=== PATIENT | female | born 2000 | race Two or more races ===

== ENCOUNTER 2019-07-10 10:20 | Day surgery (SDC) | payer MEDICAID ==
[2019-07-08 12:42] LABS: BASOPHILS % (AUTO) 0.6 % (0.0-2.0); HEMATOCRIT 42.4 % (37.0-47.0); HEMOGLOBIN 14.4 G/DL (12.0-16.0); LYMPHOCYTES % (AUTO) 37.8 % (20.0-45.0); MEAN CORPUSCULAR VOLUME 91 FL (80-99); MONOCYTES % (AUTO) 10.5 % (1.0-10.0); NEUTROPHILS % (AUTO) 47.2 % (45.0-75.0); PLATELET COUNT 256 K/UL (150-450); RED BLOOD COUNT 4.63 M/UL (4.20-5.40); RED CELL DISTRIBUTION WIDTH 11.1 % (11.6-14.8); WHITE BLOOD COUNT 6.3 K/UL (4.8-10.8)
[2019-07-08 12:57] LABS: APPEARANCE,URINE CLEAR; BILIRUBIN, URINE NEGATIVE (NEGATIVE); COLOR,URINE PALE YELLOW; GLUCOSE, URINE (UA) NEGATIVE (NEGATIVE); KETONES,URINE NEGATIVE (NEGATIVE); LEUKOCYTE ESTERASE ,URINE NEGATIVE (NEGATIVE); NITRITE,URINE NEGATIVE (NEGATIVE); PH,URINE 6 (4.5-8.0); PROTEIN,URINE NEGATIVE (NEGATIVE); UROBILINOGEN,URINE NORMAL MG/DL (0.0-1.0)
--- NOTE | 2019-07-09 15:00 | Pre-op HX & Phy Repo 2 SIG ---
DATE OF ADMISSION: 07/10/2019 SCHEDULED FOR OUTPATIENT SURGERY: 07/10/2019. HISTORY OF PRESENT ILLNESS: The patient is a 18-year-old female in overall good health who presents with a 3-month history of a left breast mass with associated discomfort. She has no prior history of breast disease. She has a cousin, who had breast cancer. MEDICATIONS: None. ALLERGIES: None. OPERATIONS: None. REVIEW OF SYSTEMS: She is nulliparous. She has regular menstrual periods. PHYSICAL EXAMINATION: GENERAL: The patient is 5 feet 118 pounds. VITAL SIGNS: Within normal limits. HEENT: Within normal limits. LUNGS: Clear. HEART: Regular rhythm. BREASTS: Moderately large and ptotic. The right breast is unremarkable. Left breast at 8 o'clock adjacent to the areolar border is a 3 cm mobile mass. There is no axillary, supraclavicular lymphadenopathy. ABDOMEN: Soft. PELVIC: Per primary care. RECTAL: Per primary care. EXTREMITIES: Without edema. NEUROLOGIC: Physiologic. ADDITIONAL INFORMATION: Ultrasound of the left breast revealed a 2.7 x 1.8 cm nodule at 8 to 9 o'clock, probably a fibroadenoma, possible phyllodes tumor. IMPRESSION: Symptomatic left breast mass, probable fibroadenoma versus phyllodes tumor. PLAN: In view of the symptomatic nature of the mass, there is no benefit to core biopsy as it is very unlikely to be malignant. The plan is for excision of the left breast mass and general anesthesia as an outpatient with a circumareolar incision. I have discussed the nature of the surgery with the patient and her mother indications, alternatives, options, and risks including bleeding, infection, recurrence, need for additional surgery or treatments based on final pathology, scarring or distortion of the breast and nipple etc. All questions have been answered. She understands and agrees to proceed as an outpatient under general anesthesia. Dwayne Song M.D. DR: ISAMAR JOB#: [id number] CC:
[2019-07-10] VITALS (7 sets, daily range): BP systolic 92–114; BP diastolic 50–65
[~2019-07-10] VITALS: Ht 152.4 cm; Wt 53.5 kg
[2019-07-10] MEDS ORDERED: NKM (11:10)
[2019-07-10] MEDS ORDERED: LR 1000ml 1,000 ML IVLG SCH (11:37)
--- NOTE | 2019-07-10 11:39 | Anethesia Preoperative Eval ---
Anesthesia Pre-op PMH/ROS General Date of Evaluation: Jul 10, 2019 Time of Evaluation: 13:24 Anesthesiologist: Tyler ASA Score: ASA 1 Mallampati Score Class I : Soft palate, uvula, fauces, pillars visible Class II: Soft palate, uvula, fauces visible Class III: Soft palate, base of uvula visible Class IV: Only hard plate visible Mallampati Classification: Class I Surgeon: Nohemi Diagnosis: L Breast Pain Surgical Procedure: L Breast Mass Excision Anesthesia History: none Family History: no anesthesia problems Allergies: Coded Allergies: No Known Allergies (Unverified , 07/09/19) Medications: see eMAR Patient NPO?: Yes Anesthesia Pre-op Phys. Exam Physician Exam Last Vital Signs Date Time Temp Pulse Resp B/P (MAP) Pulse Ox O2 Delivery O2 Flow Rate FiO2 07/10/19 11:05 Room Air 07/10/19 10:50 97.4 63 18 109/64 100 Constitutional: NAD Neurologic: CN 2-12 intact Cardiovascular: RRR Respiratory: CTA Gastrointestinal: S/NT/ND Airway Exam Mallampati Score: Class I MO: full ROM: full Teeth: intact Anesthesia Pre-op A/P Risk Assessment & Plan Assessment: ASA 1 Plan: GA, SED Status Change Before Surgery: No Pre-Antibiotics Dru Gram Ancef IV Given Within 1 Hr of Incision: Yes Time Given: 13:36 Sebastien Scott MD Jul 10, 2019 11:39
--- NOTE | 2019-07-10 11:42 | Immediate Post-Op Evaluation ---
Immediate Post-Op Evalulation Immediate Post-Op Evalulation Procedure: L Breast Mass Excision Date of Evaluation: Jul 10, 2019 Time of Evaluation: 14:35 IV Fluids: 500 LR Blood Products: 0 Estimated Blood Loss: 10 Urinary Output: 0 Blood Pressure Systolic: 102 Blood Pressure Diastolic: 56 Pulse Rate: 56 Respiratory Rate: 16 O2 Sat by Pulse Oximetry: 100 Temperature (Fahrenheit): 97.8 Pain Score (1-10): 3 Nausea: No Vomiting: No Complications 0 Patient Status: awake, reacts, patent, none Hydration Status: adequate Dru Gram Ancef IV Given Within 1 Hr of Incision: Yes Time Given: 13:36 Sebastien Scott MD Jul 10, 2019 11:42
[2019-07-10] MEDS ORDERED: fentaNYL 100 mcg/2 mL IV PRN (11:45)
[2019-07-10] MEDS ORDERED: Hydromorphone 0.5mg/0.5ml inj IVP PRN (11:45)
[2019-07-10] MEDS ORDERED: DiphenhydrAMINE 50mg/ml Inj IVP PRN (11:45)
[2019-07-10] MEDS ORDERED: Metoclopramide 10mg/2ml Inj IVP PRN (11:45)
[2019-07-10] MEDS ORDERED: Midazolam 2mg/2ml Inj IVP PRN (11:45)
[2019-07-10] MEDS ORDERED: Ketorolac 30mg Inj IV PRN ×2 (11:45)
[2019-07-10] MEDS ORDERED: Acetaminophen (Non formulary) 100 ML IV ONE (11:45)
[2019-07-10] MEDS ORDERED: oxyCODONE HCL/Acetaminophen 5/325mg ORAL PRN (11:45)
[2019-07-10] MEDS ORDERED: Labetalol 5mg/ml 20ml vial IV PRN (11:45)
[2019-07-10] MEDS ORDERED: HYDROcodone/Acetamin 5/325 tab ORAL PRN ×2 (11:45→14:30)
[2019-07-10] MEDS ORDERED: LORazepam Inj 2mg/ml 1ml IV PRN (11:45)
[2019-07-10] MEDS ORDERED: Meperidine 50mg/ml Inj(FOR RIGORS ONLY) IVP PRN (11:45)
[2019-07-10] MEDS ORDERED: Atropine Sulfate 0.4mg/ml inj IVP PRN (11:45)
[2019-07-10] MEDS ORDERED: HYDROcodone/Acetamin 7.5/325 tab ORAL PRN (11:45)
[2019-07-10] MEDS ORDERED: Lidocaine 1% MPF 10mg/ml 5ml ONE ×2 (12:12→13:23)
[2019-07-10] MEDS ORDERED: Lidocaine 1% 10mg/ml/Epi 0.005mg/ml 30ml vial INJ ONE (13:13)
[2019-07-10] MEDS ORDERED: Bupivacaine w/Epi 0.5% 30ml Vial INJ ONE (13:14)
[2019-07-10] MEDS ORDERED: Bacitracin 50000 Units Vial ONE (13:14)
[2019-07-10] MEDS ORDERED: fentaNYL 100 mcg/2 mL IV ONE (13:21)
--- NOTE | 2019-07-10 13:21 | Pre-Procedure Note/Attestation ---
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 I attest that I re-evaluated the patient just prior to the surgery and that there has been no change in the patient's H&P, except as documented below: none Dwayne Song MD Jul 10, 2019 13:21
[2019-07-10] MEDS ORDERED: Sodium Chloride 10ml vial INJ ONE (13:23)
[2019-07-10] MEDS ORDERED: Dexamethasone 4mg/ml vial ONE (13:23)
[2019-07-10] MEDS ORDERED: Lidocaine 1% Plain 30 ml INJ ONE (13:23)
[2019-07-10] MEDS ORDERED: Bupivacaine 0.25% Inj 30ml INJ ONE (13:28)
[2019-07-10] MEDS ORDERED: NS Irrig 1000ml ONE (13:30)
[2019-07-10] MEDS ORDERED: Sterile Water Irrig 1000ml IRRIG ONE (13:30)
[2019-07-10] MEDS ORDERED: Propofol 200mg/20ml IV ONE (13:30)
[2019-07-10] MEDS ORDERED: LR 1000ml ONE (13:30)
--- NOTE | 2019-07-10 14:25 | Brief Operative Note ---
Immediate Post Operative Note Operative Note Pre-op Diagnosis: left breast mass Procedure: excision of left breast mass Post-op Diagnosis: same - fibroadenoma vs. phyllodes tumor Post-op Diagnosis: same as pre-op Findings: consistent w/pre-op dx studies Surgeon: marquez Anesthesiologist: varghese Anesthesia: general Specimen: yes - left breast mass Complications: none Condition: stable Fluids: see anesthesia record Estimated Blood Loss: minimal Drains: none Implant(s) used?: No Dwayne Song MD Jul 10, 2019 14:25
[2019-07-10] MEDS ORDERED: HYDROmorphone 1mg/ml Carpuject SUBQ PRN (14:30)
--- NOTE | 2019-07-10 14:37 | 48 Hour Post Anesthesia Eval ---
Post Anesthesia Evaluation Procedure: L Breast Mass Excision Date of Evaluation: Jul 10, 2019 Time of Evaluation: 16:43 Blood Pressure Systolic: 101 0: 54 Pulse Rate: 62 Respiratory Rate: 18 Temperature (Fahrenheit): 98 O2 Sat by Pulse Oximetry: 100 Airway: patent Nausea: No Vomiting: No Pain Intensity: 2 Hydration Status: adequate Cardiopulmonary Status: Stable Mental Status/LOC: patient returned to baseline Follow-up Care/Observations: 0 Post-Anesthesia Complications: 0 Follow-up care needed: ready to discharge Sebastien Scott MD Jul 10, 2019 14:37
--- NOTE | 2019-07-10 18:15 | Operative Note - Dictated ---
DATE OF OPERATION: 07/10/2019 SURGEON: Dwayne Song M.D. ROD WELDER: None. ANESTHESIOLOGIST: Sebastien Scott M.D. TYPE OF ANESTHESIA: General. PREOPERATIVE DIAGNOSIS: Left breast mass, fibroadenoma versus phyllodes tumor. POSTOPERATIVE DIAGNOSIS: Left breast mass, fibroadenoma versus phyllodes tumor. OPERATION PERFORMED: Excision of left breast mass. DESCRIPTION OF PROCEDURE: The patient was taken to the operating room and under general anesthesia with sequential compression device stockings in place, she was prepped and draped in the usual fashion. The 3 centimeter mobile mass was located at approximately 9 o'clock just lateral to the areolar border in the left breast. A circumareolar incision was made achieving hemostasis with cautery and the flaps dissected laterally. The dissection continued to the mass, which was grasped with a sharp towel clip and enucleated in its entirety. Hemostasis was carefully achieved with cautery. The wound was irrigated and hemostasis was seen to be secured. The incision was infiltrated with 0.25% Marcaine plain. The incision was closed with interrupted 3-0 Vicryl deep dermal subcutaneous sutures followed by continuous 5-0 Monocryl subcuticular suture. Mastisol and half-inch Steri-Strips were applied followed by dry sterile dressing. Final sponge and needle counts were correct. The patient tolerated the procedure well and left the operating room in good condition. Dwayne Song M.D. DR: JUAN JOB#: [id number] CC:
[2019-07-10] MEDS ORDERED: D5 1/2NS 1,000 ML IV SCH (20:00)
== END 2019-07-10 15:45 | disposition home or self-care (01) ==
LOC: SUR 10:20
DX: N63.20 Unspecified lump in the left breast, unspecified quadrant (principal)
CPT/HCPCS: 19101; 36415; 81001; 81025; 85025; J0690; J1100; J1885; J2001; J2250; J2405; J2704; J3010; J7120; S0020; Z7512; 94003; 94150